=== PATIENT | male | born 1980 | race Caucasian/White ===

== ENCOUNTER → 2018-10-08 | Outpatient (CLI) | payer BC, SELFPAY ==
[2018-09-25 15:09] VITALS: BMI 27.4
--- NOTE | 2018-10-08 18:18 | STRESSREP ---
Stress Test Report Date: Date: Date: 10-08-18 Procedure: Exercise tolerance test Indications: Chest pain; palpitations; PVCs Consent: Per the patient Procedure: The patient exercised on a Williams protocol for 9 minutes and 20 seconds completing Stage III and 20 seconds of Stage III achieving a peak heart rate of 162 bpm (88 % predicted maximal heart rate) with a peak blood pressure 164/40 mmHg and a peak MET capacity of approximately 10 MET's. The baseline ECG demonstrated normal sinus rhythm. The peak exercise ECG demonstrated no obvious ECG changes. There were no cardiac dysrhythmias pretest, during exercise, or recovery. The functional capacity was considered good. The patient had no complaint of chest discomfort during exercise or recovery. The examination was discontinued secondary to leg discomfort. Impression: 1. Technically adequate (percent predicted maximal heart rate greater than 85%) exercise tolerance test 2. Peak exercise ECG with no obvious ECG changes 3. There were no cardiac dysrhythmias during exercise or recovery This note was generated with [employer] software. It may contain incorrect words, spelling, and punctuation that were not noted in checking the note before signing.
--- NOTE | 2018-10-08 18:21 | STRESSREP_ITS ---
Stress Test Report Date: Date: Date: 10-08-18 Procedure: Exercise tolerance test Indications: Chest pain; palpitations; PVCs Consent: Per the patient Procedure: The patient exercised on a Williams protocol for 9 minutes and 20 seconds completing Stage III and 20 seconds of Stage III achieving a peak heart rate of 162 bpm (88 % predicted maximal heart rate) with a peak blood pressure 164/40 mmHg and a peak MET capacity of approximately 10 MET's. The baseline ECG demonstrated normal sinus rhythm. The peak exercise ECG demonstrated no obvious ECG changes. There were no cardiac dysrhythmias pretest, during exercise, or recovery. The functional capacity was considered good. The patient had no complaint of chest discomfort during exercise or recovery. The examination was discontinued secondary to leg discomfort. Impression: 1. Technically adequate (percent predicted maximal heart rate greater than 85%) exercise tolerance test 2. Peak exercise ECG with no obvious ECG changes 3. There were no cardiac dysrhythmias during exercise or recovery This note was generated with [employer] software. It may contain incorrect words, spelling, and punctuation that were not noted in checking the note before signing.
== END | disposition home or self-care (01) ==
PROVIDERS: Referring Provider Internal Medicine Cardiovascular Disease; Visit Provider Internal Medicine Cardiovascular Disease
DX: R07.9 Chest pain, unspecified (principal)
CPT/HCPCS: 93017

== ENCOUNTER 2021-01-08 16:40 | Emergency (ER) | payer SELFPAY ==
[2020-10-22 16:23] VITALS: BMI 27.4
[2021-01-08 16:41] VITALS: BP 109/67; PULSE 89; RESP 16; TEMP 36.4; O2SAT 95; BMI 26.6
--- NOTE | 2021-01-08 16:48 | EX.ED.DYSGE1 ---
HPI History of Present Illness Chief Complaint: Allergic Reaction Narrative Narrative: Patient presenting with pain in the back of his throat. He has been taking doxycycline for possible STI. He states that he had his results returned and he was negative for STI however he continued to take the doxycycline. He now has throat pain. He talked to his pharmacist who stated it sounded like anaphylaxis and he came to the ED for evaluation. He has no rash, abdominal pain, shortness of breath, nausea or vomiting. PFSH PFS Medical History Anemia Chest pain Palpitations Premature ventricular contraction Tobacco abuse Home Medications doxycycline hyclate [Vibramycin] 100 mg PO DAILY 01/08/21 [History Last Taken Unknown] epinephrine [EpiPen 2-Salas] 0.3 mg IM Q10M PRN #2 ea 01/08/21 [Rx Last Taken Unknown] Allergy/AdvReac Type Severity Reaction Status Date / Time Penicillins Allergy Other Verified 01/08/21 16:41 venom-honey bee Allergy Other Verified 01/08/21 16:41 [bee venom (honey bee)] nitrile AdvReac Unknown Rash Verified 01/08/21 16:41 Family History Mother Heart disease Sister Diabetes Other Colon cancer Stomach cancer Surgical History (Updated 05/28/19 @ 16:31 by Jaylen Guerra) History of knee surgery Social History Smoking Status: Current every day smoker tobacco type: cigarettes Tobacco: How many years used: 25 alcohol intake: never substance use type: does not use caffeine: Yes Type: carbonated beverages Number of servings: 5 and coffee ROS ROS ED Constitutional Constitutional ED: Denies chills, fever(s) or subjective Eyes Eyes: Denies blurry vision or diplopia ENT ENT ED: Denies rhinorrhea or sore throat Cardiovascular Cardiovascular: Denies chest pain or palpitations Respiratory/Chest Respiratory/Chest: Denies cough, dyspnea or sputum Gastrointestinal Gastrointestinal: Denies abdominal pain, nausea or vomiting Genitourinary Genitourinary ED: Denies dysuria, hematuria or urinary frequency Musculoskeletal Musculoskeletal: Denies arthralgias or myalgias Integumentary Denies abscess, Abrasions or rash Neurologic Neurologic: Denies headache(s) or paresthesias Psychiatric Psychiatric: Denies anxiety or depression EXAM Physical Exam Const Vital Signs: 01/08/21 16:41 Temperature 97.6 F L Temperature Source Temporal Pulse Rate 89 Respiratory Rate 16 Blood Pressure 109/67 Blood Pressure Mean 81 Pulse Ox 95 Oxygen Delivery Method Room Air Positive well nourished General Appearance ED: NAD; Negative for pallor HEENT Reports normocephalic, head/scalp atraumatic and moist mucous membranes Negative for trauma Eyes PERRL and EOMs intact bilaterally Neck no lymphadenopathy and supple Chest Wall inspection of chest normal and palpation of chest normal Resp normal respiratory effort and clear to auscultation bilaterally Auscultation: Negative for rales, rhonchi or wheezes Cardio regular rate and regular rhythm GI normal to inspection, nondistended, normoactive bowel sounds and non-distended Auscultation: normoactive bowel sounds Palpation: soft Narrative: Deferred Extremity normal to inspection General Extremety ED: Negative for edema or tenderness General Extremity: Negative for edema Neuro oriented x3 and CN's II-XII intact bilaterally Sensorium / Orientation: alert Motor Exam: strength 5/5 throughout Psych mental status grossly normal Attitude: No agitated Skin no rashes or lesions noted and no wounds General Skin Exam: Negative for jaundice or pallor MDM MDM MDM Narrative Medical decision making narrative: Patient presenting with symptoms of chemical esophagitis from using doxycycline. I counseled him that he can discontinue this if he had a negative test. He states that his pharmacist said that he should complete this even though he has a negative test. I counseled him again he should stop taking the medication if he was negative. Patient has no signs of anaphylaxis. He did request an EpiPen just in case. This was provided. Patient discharged home in stable condition. Impression: 1. Chemical esophagitis Discharge Plan Triage Chief Complaint: Allergic Reaction ED Provider: Arvin Sumner Dx/Rx/DC Orders Instructions: Esophagitis Prescriptions: New epinephrine [EpiPen 2-Salas] 0.3 mg/0.3 mL auto-injector 0.3 mg IM Q10M PRN (Reason: anaphylaxis) Qty: 2 RF: 0 No Action doxycycline hyclate [Vibramycin] 100 mg capsule 100 mg PO DAILY RF: 0 Primary Care Provider: Care Physician,No Primary Referrals: Quinn Elizalde MD [STAFF PHYSICIAN] - As Needed Care Physician,No Primary [Primary Care Provider] - Disposition Disposition: Home, Self Care
== END 2021-01-08 17:25 | disposition home or self-care (01) ==
LOC: ED 17:06
PROVIDERS: Emergency Provider Student in an Organized Health Care Education/Training Program
DX: K20.90 Esophagitis, unspecified without bleeding (principal); T36.4X5A Adverse effect of tetracyclines, initial encounter; Y92.9 Unspecified place or not applicable; Z86.2 Personal history of diseases of the blood and blood-forming organs and certain disorders involving the immune mechanism; F17.210 Nicotine dependence, cigarettes, uncomplicated